=== PATIENT | female | born 2000 | race Caucasian/White ===

== ENCOUNTER 2021-07-30 13:08 | Emergency (ER) | payer BC, OTHER ==
[~2021-07-30] VITALS: Ht 147.3 cm; Wt 59.0 kg
--- NOTE | 2021-07-30 13:24 | NUR ---
[email or web address], medical screening exam
--- NOTE | 2021-07-30 13:47 | NUR ---
Patient is back from CT scan department.
--- NOTE | 2021-07-30 14:41 | NUR ---
Patient discharged to home in stable condition with brisk steady gait. Written and verbal after care instructions givento patient. Patient verbalized understanding and compliance of instructions. Stressed follow up with primary doctor or return to ER for worsening s/s.
== END 2021-07-30 14:41 | disposition home or self-care (01) ==
LOC: ER 13:08
DX: S09.90XA Unspecified injury of head, initial encounter (principal); S00.81XA Abrasion of other part of head, initial encounter; W22.8XXA Striking against or struck by other objects, initial encounter; Y93.E2 Activity, laundry; Y92.89 Other specified places as the place of occurrence of the external cause
CPT/HCPCS: 70450; A4663